=== PATIENT | female | born 1935 | race Caucasian/White ===

== ENCOUNTER 2016-09-06 14:46 | Inpatient (IN) | payer OTHER ==
[~2016-09-06] VITALS: Ht 165.1 cm; Wt 89.6 kg
[~2016-09-06 14:46] MED LIST: ADVAIR 250/501 DISK IH; ATROVENT H200 INHALA IH; BACTRIM,SEPT1 TABLET PO; FUROSEMIDE40 MG PO; JANUMET 50/51 TABLET PO; LASIX20 MG PO; LEVAQUIN500 MG PO; LORAZEPAM1 MG PO; METFORMIN HCL500 M4 PO; METFORMIN HCL500 MG PO; PROVENTIL,2.5 MG/3 M IH; SERTRALINE HCL100 MG PO; SIMVASTATIN20 MG PO; THEOCHRON PO; THEOPHYLLINE400 MG PO
[2016-09-06 15:25] LABS: CARBON DIOXIDE (BICARBONATE) 39.4 MEQ/L (20-31)
[2016-09-06 15:27] LABS: HEMATOCRIT 18.7 % (36.0-46.0); MCH 14.5 PG (29.0-34.0); MCHC 24.1 G/DL (30.0-36.0); MCV 60.3 FL (83-99); MEAN PLAT.VOLUME 9.2 uM^3 (9.5-12.4); NRBC (%) 0.5 /100 WBC (0-0); PLATELET COUNT 496 K/uL (156-360); RBC DIS.WIDTH-CV 22.7 % (11.8-14.6); RBC DIS.WIDTH-SD 47.3 % (39-53); WHITE BLOOD COUNT 12.1 K/uL (4.1-10.2)
[2016-09-06 15:34] LABS: CHLORIDE 100 mEq/L (99-109); SODIUM 142 mEq/L (136-147)
[2016-09-06 15:35] LABS: GLUCOSE 129 mg/dL (70-99)
[2016-09-06 15:37] LABS: ANION GAP 12 MEQ/L (2-14)
[2016-09-06 15:39] LABS: GFR ESTIMATE (CALCULATED) > 59 mL/min/
[2016-09-06 15:40] LABS: UREA NITROGEN (BUN) 11 mg/dL (9-23)
[2016-09-06 15:44] LABS: TROP-I INTERPRETATION NEGATIVE; TROPONIN-I < 0.01 ng/mL (0.0-0.30)
[2016-09-06] MEDS ORDERED: LASIX20 MG PO (17:04)
[2016-09-06] MEDS ORDERED: ZOCOR20 MG PO (17:05)
[2016-09-06] MEDS ORDERED: VESICARE5 MG PO (17:05)
[2016-09-06] MEDS ORDERED: PROAIR HFA8.5 GM IH (17:06)
[2016-09-06 18:18] VITALS: BP 144/55
[2016-09-06 21:38] VITALS: BP 161/65
[2016-09-06 21:40] VITALS: BP 161/65
[2016-09-07] VITALS (14 sets, daily range): BP systolic 129–149; BP diastolic 56–74
[2016-09-07 01:13] LABS: HEMATOCRIT 24.4 % (36.0-46.0); MCHC 27.5 G/DL (30.0-36.0); MEAN PLAT.VOLUME 9.1 uM^3 (9.5-12.4); NRBC (%) 0.6 /100 WBC (0-0); PLATELET COUNT 464 K/uL (156-360); RBC DIS.WIDTH-CV 27.1 % (11.8-14.6); RBC DIS.WIDTH-SD 61.1 % (39-53); WHITE BLOOD COUNT 12.8 K/uL (4.1-10.2)
[2016-09-07 01:17] LABS: MCV 65.2 FL (83-99); RED BLOOD COUNT 3.74 M/uL (3.80-5.20)
[2016-09-07 01:18] LABS: MCH 17.9 PG (29.0-34.0)
[2016-09-07 01:26] LABS: TROP-I INTERPRETATION NEGATIVE; TROPONIN-I < 0.01 ng/mL (0.0-0.30)
[2016-09-07 02:59] LABS: POINT-OF-CARE METER ID UU14174216; POINT-OF-CARE USER ID ENVMNS
[2016-09-07 07:47] LABS: HEMATOCRIT 28.2 % (36.0-46.0); MCV 66.2 FL (83-99)
[2016-09-07 08:15] LABS: TROP-I INTERPRETATION NEGATIVE; TROPONIN-I < 0.01 ng/mL (0.0-0.30)
[2016-09-07 09:55] LABS: BASOPHIL COUNT 0.1 K/uL (0-0.1); EOSINOPHIL (%) 2.7 % (0-5); EOSINOPHIL COUNT 0.3 K/uL (0-0.3); HEMATOCRIT 28.6 % (36.0-46.0); IMMATURE GRANULOCYTE (%) 1.7 % (0.0-0.7); IMMATURE GRANULOCYTE COUNT 0.2 K/uL; INSTRUMENT ABS NEUTROPHIL CT 10.1 K/uL; LYMPHOCYTE COUNT 1.1 K/uL (1.0-2.8); MCH 18.5 PG (29.0-34.0); MCV 66.2 FL (83-99); MONOCYTE (%) 7.5 % (3-12); NEUTROPHIL (%) 78.9 % (45-76); NEUTROPHIL COUNT 10.1 K/uL (1.8-6.4); PLATELET COUNT 454 K/uL (156-360); RBC DIS.WIDTH-CV 25.8 % (11.8-14.6); RBC DIS.WIDTH-SD 59.9 % (39-53); RED BLOOD COUNT 4.32 M/uL (3.80-5.20); WHITE BLOOD COUNT 12.7 K/uL (4.1-10.2)
[2016-09-07 10:36] LABS: IRON 71 MCG/DL (35-150)
[2016-09-07 10:56] LABS: FERRITIN 6 NG/ML (10-291)
[2016-09-07 11:02] LABS: INTER. NORMALIZED RATIO 1.1; PTT 26.9 (25-32)
[2016-09-07 12:19] LABS: POINT-OF-CARE METER ID UU13113781; POINT-OF-CARE USER ID ENVKC36
[2016-09-07 16:58] LABS: ANION GAP 11 MEQ/L (2-14); CHLORIDE 98 MEQ/L (99-109); SAMPLE HEMOLYSIS CHECK 0; SAMPLE ICTERIC CHECK 0; SAMPLE LIPEMIA CHECK 0; SODIUM 143 MEQ/L (136-147)
[2016-09-07 17:04] LABS: GFR ESTIMATE (CALCULATED) > 59 mL/min/; GLUCOSE 162 mg/dL (70-99); UREA NITROGEN (BUN) 9 mg/dL (9-23)
[2016-09-07 17:10] LABS: POINT-OF-CARE METER ID UU13113781
[2016-09-07 19:37] LABS: HEMATOCRIT 31.7 % (36.0-46.0); MCH 19.7 PG (29.0-34.0); MCV 67.7 FL (83-99); MEAN PLAT.VOLUME 9.3 uM^3 (9.5-12.4); NRBC (%) 0.7 /100 WBC (0-0); PLATELET COUNT 462 K/uL (156-360); RBC DIS.WIDTH-SD 63.8 % (39-53); RED BLOOD COUNT 4.68 M/uL (3.80-5.20); WHITE BLOOD COUNT 15.1 K/uL (4.1-10.2)
[2016-09-07 21:05] LABS: POINT-OF-CARE METER ID UU13113781
[2016-09-08 00:57] LABS: HEMATOCRIT 32.9 % (36.0-46.0); MCH 19.7 PG (29.0-34.0); MCHC 28.9 G/DL (30.0-36.0); MCV 68.3 FL (83-99); MEAN PLAT.VOLUME 9.2 uM^3 (9.5-12.4); NRBC (%) 0.7 /100 WBC (0-0); PLATELET COUNT 453 K/uL (156-360); RBC DIS.WIDTH-SD 64.3 % (39-53); RED BLOOD COUNT 4.82 M/uL (3.80-5.20); WHITE BLOOD COUNT 13.9 K/uL (4.1-10.2)
[2016-09-08 03:58] VITALS: BP 142/74
[2016-09-08 08:15] LABS: POINT-OF-CARE METER ID UU13113781; POINT-OF-CARE USER ID ENVKC36
[2016-09-08 09:23] VITALS: BP 134/64
[2016-09-08 09:26] LABS: BASOPHIL COUNT 0.1 K/uL (0-0.1); EOSINOPHIL (%) 0 % (0-5); HEMATOCRIT 30.6 % (36.0-46.0); IMMATURE GRANULOCYTE (%) 1.2 % (0.0-0.7); IMMATURE GRANULOCYTE COUNT 0.2 K/uL; INSTRUMENT ABS NEUTROPHIL CT 11.5 K/uL; LYMPHOCYTE COUNT 1.1 K/uL (1.0-2.8); MCH 19.9 PG (29.0-34.0); MCHC 28.8 G/DL (30.0-36.0); MCV 69.2 FL (83-99); MEAN PLAT.VOLUME 9.2 uM^3 (9.5-12.4); MONOCYTE (%) 6.1 % (3-12); MONOCYTE COUNT 0.8 K/uL (0-0.8); NEUTROPHIL (%) 84.3 % (45-76); NEUTROPHIL COUNT 11.5 K/uL (1.8-6.4); NRBC (%) 0.7 /100 WBC (0-0); PLATELET COUNT 459 K/uL (156-360); RBC DIS.WIDTH-CV 27.2 % (11.8-14.6); RBC DIS.WIDTH-SD 65.5 % (39-53); RED BLOOD COUNT 4.42 M/uL (3.80-5.20); WHITE BLOOD COUNT 13.6 K/uL (4.1-10.2)
[2016-09-08 09:39] LABS: ANION GAP 10 MEQ/L (2-14); CHLORIDE 103 MEQ/L (99-109); GFR ESTIMATE (CALCULATED) > 59 mL/min/; MAGNESIUM 1.6 mg/dl (1.3-2.7); POTASSIUM 3.3 MEQ/L (3.7-5.4); SAMPLE HEMOLYSIS CHECK 0; SAMPLE ICTERIC CHECK 0; SAMPLE LIPEMIA CHECK 0; SODIUM 148 MEQ/L (136-147); THEOPHYLLINE 13.8 MCG/ML (10-20); UREA NITROGEN (BUN) 10 mg/dL (9-23)
[2016-09-08 09:40] LABS: GLUCOSE 91 mg/dL (70-99)
[2016-09-08 11:23] LABS: POINT-OF-CARE USER ID ENVKC36
[2016-09-08 13:00] VITALS: BP 144/65
[2016-09-08 16:36] LABS: POINT-OF-CARE USER ID ENVKC36
[2016-09-08 17:20] VITALS: BP 136/61
[2016-09-08 19:15] VITALS: BP 145/63
[2016-09-08 20:22] LABS: HEMATOCRIT 32.1 % (36.0-46.0); MCV 70.2 FL (83-99)
[2016-09-08 22:58] VITALS: BP 124/60
[2016-09-09] VITALS (8 sets, daily range): BP systolic 130–164; BP diastolic 63–92
[2016-09-09 06:14] LABS: HEMATOCRIT 29.7 % (36.0-46.0); MCHC 28.3 G/DL (30.0-36.0); MCV 70.9 FL (83-99); MEAN PLAT.VOLUME 9.2 uM^3 (9.5-12.4); NRBC (%) 0.6 /100 WBC (0-0); PLATELET COUNT 453 K/uL (156-360); RBC DIS.WIDTH-CV 28.3 % (11.8-14.6); RBC DIS.WIDTH-SD 70.2 % (39-53); RED BLOOD COUNT 4.19 M/uL (3.80-5.20); WHITE BLOOD COUNT 12.6 K/uL (4.1-10.2)
[2016-09-09 06:46] LABS: ANION GAP 8 MEQ/L (2-14); CHLORIDE 103 MEQ/L (99-109); GFR ESTIMATE (CALCULATED) > 59 mL/min/; GLUCOSE 133 mg/dL (70-99); POTASSIUM 3.4 MEQ/L (3.7-5.4); SAMPLE HEMOLYSIS CHECK 0; SAMPLE ICTERIC CHECK 0; SAMPLE LIPEMIA CHECK 0; SODIUM 145 MEQ/L (136-147); UREA NITROGEN (BUN) 10 mg/dL (9-23)
[2016-09-09 08:37] LABS: INTERNAL CONTROL VALID? YES
[2016-09-09 09:21] LABS: BASE EXCESS 9.2 mEq/L (-3 to +3); BICARBONATE 35.7 mEq/L (22-26); CARBOXY HGB 1.2 % (0-5); COMMENTS - BLOOD GASES A+C+; METHEMOGLOBIN 1.3 % (0-1.5); PCO2 59 mm Hg (35-45); PO2 64 mm Hg (80-100); SITE RR; pH 7.39 (7.35-7.45)
[2016-09-09 09:22] LABS: DEVICE HFNC; FI02 80 %; O2 FLOW 30 L/MIN; TOTAL RESP RATE 16 resp/min
[2016-09-09 20:17] LABS: HEMATOCRIT 30.8 % (36.0-46.0); MCV 71.3 FL (83-99)
[2016-09-10] VITALS (7 sets, daily range): BP systolic 131–154; BP diastolic 59–93
[2016-09-10 07:57] LABS: HEMATOCRIT 34.1 % (36.0-46.0); MCH 20.5 PG (29.0-34.0); MCHC 28.2 G/DL (30.0-36.0); MCV 72.9 FL (83-99); MEAN PLAT.VOLUME 9.4 uM^3 (9.5-12.4); NRBC (%) 1.3 /100 WBC (0-0); PLATELET COUNT 420 K/uL (156-360); RBC DIS.WIDTH-CV 28.3 % (11.8-14.6); RBC DIS.WIDTH-SD 71.6 % (39-53); RED BLOOD COUNT 4.68 M/uL (3.80-5.20); WHITE BLOOD COUNT 10.5 K/uL (4.1-10.2)
[2016-09-10 08:07] LABS: ANION GAP 7 MEQ/L (2-14); CHLORIDE 103 MEQ/L (99-109); GFR ESTIMATE (CALCULATED) > 59 mL/min/; GLUCOSE 122 mg/dL (70-99); SAMPLE HEMOLYSIS CHECK 0; SAMPLE ICTERIC CHECK 0; SAMPLE LIPEMIA CHECK 0; SODIUM 140 MEQ/L (136-147); UREA NITROGEN (BUN) 10 mg/dL (9-23)
[2016-09-10 08:23] LABS: POINT-OF-CARE METER ID UU13113781
[2016-09-10 11:24] LABS: POINT-OF-CARE METER ID UU13113781
[2016-09-10 14:58] LABS: C DIFF TOXIN NEGATIVE (NEGATIVE)
[2016-09-10 15:14] LABS: PROBE CHECK PASS; SPECIMEN PROCESSING CONTROL PASS
[2016-09-10 15:44] LABS: POINT-OF-CARE METER ID UU13113781
[2016-09-10 20:17] LABS: HEMATOCRIT 33.5 % (36.0-46.0); MCV 73.8 FL (83-99)
[2016-09-10 20:53] LABS: POINT-OF-CARE METER ID UU13113781
[2016-09-11 00:01] VITALS: BP 159/69
[2016-09-11 03:45] VITALS: BP 145/98
[2016-09-11 07:15] VITALS: BP 151/67
[2016-09-11 07:47] LABS: POINT-OF-CARE METER ID UU13113781
[2016-09-11 09:42] LABS: HEMATOCRIT 36.6 % (36.0-46.0); MCV 73.3 FL (83-99)
[2016-09-11 10:24] LABS: IMMUNOGLOBULIN A 313 MG/DL (40-350); IMMUNOGLOBULIN G 936 MG/DL (650-1600); IMMUNOGLOBULIN M 166 MG/DL (50-300)
[2016-09-11 11:07] LABS: POINT-OF-CARE METER ID UU13113781
[2016-09-11 16:00] VITALS: BP 160/72
[2016-09-11 16:46] LABS: POINT-OF-CARE METER ID UU13113781
[2016-09-11 19:18] VITALS: BP 140/63
[2016-09-11 20:39] LABS: HEMATOCRIT 37.6 % (36.0-46.0); MCV 74.2 FL (83-99)
[2016-09-11 21:08] LABS: POINT-OF-CARE METER ID UU13113781
[2016-09-12] VITALS (7 sets, daily range): BP systolic 119–146; BP diastolic 56–69
[2016-09-12 07:48] LABS: HEMATOCRIT 35.8 % (36.0-46.0); MCH 20.8 PG (29.0-34.0); MCHC 27.7 G/DL (30.0-36.0); MCV 75.2 FL (83-99); MEAN PLAT.VOLUME 9.2 uM^3 (9.5-12.4); NRBC (%) 0.5 /100 WBC (0-0); PLATELET COUNT 388 K/uL (156-360); RBC DIS.WIDTH-CV 30.6 % (11.8-14.6); RBC DIS.WIDTH-SD 79.9 % (39-53); RED BLOOD COUNT 4.76 M/uL (3.80-5.20); WHITE BLOOD COUNT 10.2 K/uL (4.1-10.2)
[2016-09-12 07:50] LABS: ANION GAP 10 MEQ/L (2-14); CHLORIDE 100 MEQ/L (99-109); GFR ESTIMATE (CALCULATED) 57 mL/min/; SAMPLE HEMOLYSIS CHECK 0; SAMPLE ICTERIC CHECK 0; SAMPLE LIPEMIA CHECK 0; SODIUM 142 MEQ/L (136-147)
[2016-09-12 07:51] LABS: GLUCOSE 192 mg/dL (70-99); UREA NITROGEN (BUN) 21 mg/dL (9-23)
[2016-09-12 16:45] LABS: POINT-OF-CARE METER ID UU13113781
[2016-09-12 20:11] LABS: HEMATOCRIT 37.6 % (36.0-46.0); MCV 74.9 FL (83-99)
[2016-09-12 21:16] LABS: POINT-OF-CARE METER ID UU13113781
[2016-09-13 03:48] VITALS: BP 129/58
[2016-09-13 07:30] VITALS: BP 166/74
[2016-09-13 07:38] LABS: HEMATOCRIT 37.9 % (36.0-46.0); MCH 21.2 PG (29.0-34.0); MCV 75.6 FL (83-99); MEAN PLAT.VOLUME 9.4 uM^3 (9.5-12.4); NRBC (%) 0.2 /100 WBC (0-0); PLATELET COUNT 374 K/uL (156-360); RBC DIS.WIDTH-CV 31.2 % (11.8-14.6); RBC DIS.WIDTH-SD 80.8 % (39-53); RED BLOOD COUNT 5.01 M/uL (3.80-5.20); WHITE BLOOD COUNT 9.9 K/uL (4.1-10.2)
[2016-09-13 11:40] VITALS: BP 146/63
[2016-09-13 12:42] LABS: POC NON-PRINT COM 1 ND
[2016-09-13 17:15] VITALS: BP 146/67
[2016-09-13 19:19] VITALS: BP 146/65
[2016-09-13 20:09] LABS: HEMATOCRIT 37.9 % (36.0-46.0); MCV 75.8 FL (83-99)
[2016-09-13 23:56] VITALS: BP 120/57
[2016-09-14 04:12] VITALS: BP 139/61
[2016-09-14 05:59] LABS: HEMATOCRIT 36.3 % (36.0-46.0); MCV 77.4 FL (83-99)
[2016-09-14 06:25] LABS: IMMUNOGLOBULIN A 288 MG/DL (40-350); IMMUNOGLOBULIN G 804 MG/DL (650-1600); IMMUNOGLOBULIN M 160 MG/DL (50-300)
[2016-09-14 07:41] VITALS: BP 128/58
[2016-09-14 11:43] VITALS: BP 120/58
[2016-09-14 16:35] VITALS: BP 129/57
[2016-09-14 19:57] VITALS: BP 141/75
[2016-09-14 20:01] LABS: HEMATOCRIT 38.6 % (36.0-46.0); MCV 76.6 FL (83-99)
[2016-09-15 00:23] VITALS: BP 169/71
[2016-09-15 04:22] VITALS: BP 131/87
[2016-09-15 08:03] LABS: POINT-OF-CARE USER ID NUTSLF44
[2016-09-15 08:29] LABS: MCV 76.8 FL (83-99)
[2016-09-15 08:53] LABS: CHLORIDE 100 mEq/L (99-109); POTASSIUM 5.2 mEq/L (3.7-5.4); SODIUM 141 mEq/L (136-147)
[2016-09-15 08:54] LABS: GLUCOSE 151 mg/dL (70-99)
[2016-09-15 08:56] LABS: ANION GAP 8 MEQ/L (2-14)
[2016-09-15 08:58] LABS: GFR ESTIMATE (CALCULATED) > 59 mL/min/
[2016-09-15 08:59] LABS: UREA NITROGEN (BUN) 21 mg/dL (9-23)
[2016-09-15 09:24] VITALS: BP 122/56
[2016-09-15 11:36] VITALS: BP 132/60
[2016-09-15 12:18] LABS: POINT-OF-CARE USER ID NUTSLF44
[2016-09-15 13:09] LABS: BASE EXCESS 8.8 mEq/L (-3 to +3); BICARBONATE 36.2 mEq/L (22-26); METHEMOGLOBIN 1.6 % (0-1.5); PO2 64 mm Hg (80-100); pH 7.36 (7.35-7.45)
[2016-09-15 13:10] LABS: COMMENTS - BLOOD GASES A+C+; DEVICE HFNC; O2 FLOW 12 L/MIN; PCO2 64 mm Hg (35-45); SITE LR
[2016-09-15 15:59] VITALS: BP 127/60
[2016-09-15 17:47] LABS: POINT-OF-CARE METER ID UU13113781; POINT-OF-CARE USER ID NUTSLF44
[2016-09-15 19:52] LABS: HEMATOCRIT 37.7 % (36.0-46.0); MCV 77.3 FL (83-99)
[2016-09-15 20:43] LABS: POINT-OF-CARE METER ID UU13113781
[2016-09-15 20:58] VITALS: BP 139/62
[2016-09-16 00:17] VITALS: BP 136/63
[2016-09-16 02:45] VITALS: BP 171/77
[2016-09-16 07:03] VITALS: BP 136/60
[2016-09-16 09:16] LABS: HEMATOCRIT 41.6 % (36.0-46.0); MCH 21.8 PG (29.0-34.0); MCHC 28.1 G/DL (30.0-36.0); MCV 77.5 FL (83-99); PLATELET COUNT 288 K/uL (156-360); RED BLOOD COUNT 5.37 M/uL (3.80-5.20); WHITE BLOOD COUNT 8.6 K/uL (4.1-10.2)
[2016-09-16 09:57] LABS: ANION GAP 8 MEQ/L (2-14); CHLORIDE 98 MEQ/L (99-109); GFR ESTIMATE (CALCULATED) > 59 mL/min/; GLUCOSE 139 mg/dL (70-99); POTASSIUM 4.7 MEQ/L (3.7-5.4); SAMPLE HEMOLYSIS CHECK 0; SAMPLE ICTERIC CHECK 0; SAMPLE LIPEMIA CHECK 0; SODIUM 138 MEQ/L (136-147); UREA NITROGEN (BUN) 21 mg/dL (9-23)
[2016-09-16 12:47] VITALS: BP 138/61
[2016-09-16 16:20] VITALS: BP 132/60
[2016-09-16 18:55] VITALS: BP 149/66
[2016-09-16 19:52] LABS: HEMATOCRIT 38.2 % (36.0-46.0)
[2016-09-16 20:48] LABS: POINT-OF-CARE METER ID UU13113698
[2016-09-17 00:30] VITALS: BP 156/68
[2016-09-17 05:50] VITALS: BP 193/82
[2016-09-17 06:39] LABS: HEMATOCRIT 38.7 % (36.0-46.0); MCV 77.6 FL (83-99)
[2016-09-17 07:51] LABS: POINT-OF-CARE METER ID UU14174216
[2016-09-17 08:04] LABS: ANION GAP 8 MEQ/L (2-14); CHLORIDE 99 MEQ/L (99-109); GFR ESTIMATE (CALCULATED) > 59 mL/min/; GLUCOSE 168 mg/dL (70-99); POTASSIUM 5.1 MEQ/L (3.7-5.4); SAMPLE HEMOLYSIS CHECK 0; SAMPLE ICTERIC CHECK 0; SAMPLE LIPEMIA CHECK 0; SODIUM 137 MEQ/L (136-147); UREA NITROGEN (BUN) 22 mg/dL (9-23)
[2016-09-17 09:00] VITALS: BP 132/63
[2016-09-17 11:14] LABS: POINT-OF-CARE METER ID UU14174216
[2016-09-17 12:20] VITALS: BP 128/58
[2016-09-17 15:21] VITALS: BP 129/58
[2016-09-17 15:52] LABS: POINT-OF-CARE METER ID UU14174216
[2016-09-17 21:03] VITALS: BP 129/63
[2016-09-17 21:12] LABS: POINT-OF-CARE METER ID UU13113781
[2016-09-18 00:30] VITALS: BP 146/66
[2016-09-18 07:54] LABS: MCH 22.2 PG (29.0-34.0); MCHC 28.6 G/DL (30.0-36.0); MCV 77.4 FL (83-99); PLATELET COUNT 237 K/uL (156-360); RED BLOOD COUNT 4.78 M/uL (3.80-5.20); WHITE BLOOD COUNT 8.7 K/uL (4.1-10.2)
[2016-09-18 08:10] LABS: ANION GAP 4 MEQ/L (2-14); CHLORIDE 101 MEQ/L (99-109); GFR ESTIMATE (CALCULATED) > 59 mL/min/; POTASSIUM 4.6 MEQ/L (3.7-5.4); SAMPLE HEMOLYSIS CHECK 0; SAMPLE ICTERIC CHECK 0; SAMPLE LIPEMIA CHECK 0; SODIUM 138 MEQ/L (136-147); UREA NITROGEN (BUN) 22 mg/dL (9-23)
[2016-09-18 08:18] LABS: GLUCOSE 93 mg/dL (70-99)
[2016-09-18 08:22] LABS: POINT-OF-CARE METER ID UU13113698
[2016-09-18 08:55] VITALS: BP 141/65
[2016-09-18 12:31] LABS: POINT-OF-CARE METER ID UU13113698
[2016-09-18 12:37] VITALS: BP 136/59
[2016-09-18 15:42] LABS: POINT-OF-CARE METER ID UU13113781
[2016-09-18 15:52] VITALS: BP 131/58
[2016-09-18 19:00] VITALS: BP 137/63
[2016-09-18 19:59] LABS: HEMATOCRIT 36.4 % (36.0-46.0); MCV 78.4 FL (83-99)
[2016-09-18 21:01] LABS: POINT-OF-CARE METER ID UU13113781
[2016-09-18 23:30] VITALS: BP 144/65
[2016-09-19 03:15] VITALS: BP 134/63
[2016-09-19 07:46] LABS: HEMATOCRIT 36.5 % (36.0-46.0); MCV 78.5 FL (83-99)
[2016-09-19 07:58] VITALS: BP 137/64
[2016-09-19] MEDS ORDERED: AZITHROMYCIN500 M1 PO (08:08)
[2016-09-19] MEDS ORDERED: SPIRIVA RESPIMAT4 GM IH (08:08)
[2016-09-19] MEDS ORDERED: DUONEB 2.5-0.5 M3 ML PEP (08:09)
[2016-09-19] MEDS ORDERED: FERROUS SULFAT325 MG PO (08:09)
[2016-09-19] MEDS ORDERED: CHOLESTYRAMINE P4 GM PO (08:10)
[2016-09-19] MEDS ORDERED: LASIX20 MG PO (08:12)
[2016-09-19] MEDS ORDERED: LOPERAMIDE2 MG PO (08:14)
[2016-09-19] MEDS ORDERED: PANTOPRAZOLE SO40 MG PO (08:15)
[2016-09-19] MEDS ORDERED: FLORASTOR250 MG PO (08:15)
[2016-09-19] MEDS ORDERED: MEDROL DOSEPAK4 MG PO (08:16)
[2016-09-19] MEDS ORDERED: ZOFRAN4 MG PO (08:17)
[2016-09-19 11:14] LABS: POINT-OF-CARE METER ID UU14174216
[2016-09-19 11:31] VITALS: BP 111/46
[2016-09-19 11:46] LABS: POINT-OF-CARE METER ID UU14174216
[2016-09-19 16:21] VITALS: BP 132/66
[2016-09-19 19:22] VITALS: BP 158/70
[2016-09-20 00:53] VITALS: BP 176/74
[2016-09-20 05:50] LABS: MCH 22.9 PG (29.0-34.0); MCHC 29.2 G/DL (30.0-36.0); MCV 78.4 FL (83-99); PLATELET COUNT 202 K/uL (156-360); RED BLOOD COUNT 4.85 M/uL (3.80-5.20); WHITE BLOOD COUNT 11.3 K/uL (4.1-10.2)
[2016-09-20 06:11] VITALS: BP 136/61
[2016-09-20 06:17] LABS: ANION GAP 7 MEQ/L (2-14); CHLORIDE 102 MEQ/L (99-109); GFR ESTIMATE (CALCULATED) > 59 mL/min/; GLUCOSE 106 mg/dL (70-99); POTASSIUM 4.8 MEQ/L (3.7-5.4); SAMPLE HEMOLYSIS CHECK 0; SAMPLE ICTERIC CHECK 0; SAMPLE LIPEMIA CHECK 0; SODIUM 140 MEQ/L (136-147); UREA NITROGEN (BUN) 22 mg/dL (9-23)
[2016-09-20 06:32] LABS: POINT-OF-CARE METER ID UU14174216
[2016-09-20 07:41] VITALS: BP 168/75
[2016-09-20 11:19] LABS: POINT-OF-CARE METER ID UU13113698
== END 2016-09-20 14:26 | disposition home health service (06) | DRG 377 ==
LOC: EME 14:46 → EDOF 23:23 → 4EAST 23:23
PROVIDERS: Emergency Medicine; Hospitalist; Internal Medicine; Internal Medicine Pulmonary Disease; Specialist
PROC: 30233N1 Transfusion of Nonautologous Red Blood Cells into Peripheral Vein, Percutaneous Approach (ICD-10-PCS; principal; 2016-09-06)
DX: K92.2 Gastrointestinal hemorrhage, unspecified (principal); E87.2 Acidosis; I50.33 Acute on chronic diastolic (congestive) heart failure; E87.0 Hyperosmolality and hypernatremia; D50.9 Iron deficiency anemia, unspecified; J96.21 Acute and chronic respiratory failure with hypoxia; J44.0 Chronic obstructive pulmonary disease with (acute) lower respiratory infection; J18.9 Pneumonia, unspecified organism; J44.1 Chronic obstructive pulmonary disease with (acute) exacerbation; E87.6 Hypokalemia; I45.10 Unspecified right bundle-branch block; R59.1 Generalized enlarged lymph nodes; F41.9 Anxiety disorder, unspecified; E11.9 Type 2 diabetes mellitus without complications; R91.8 Other nonspecific abnormal finding of lung field; K52.9 Noninfective gastroenteritis and colitis, unspecified; E66.9 Obesity, unspecified; Z99.81 Dependence on supplemental oxygen; Z68.34 Body mass index [BMI] 34.0-34.9, adult; Z74.01 Bed confinement status; Z87.891 Personal history of nicotine dependence
CPT/HCPCS: 36600; 70450; 71010; 71020; 71250; 71275; 74176; 80048; 80198; 81003; 82272; 82728; 82784 90; 82803; 82948; 83516 90; 83540; 83605; 83735; 83880; 84443; 84466; 84484; 85014; 85018; 85025; 85027; 85610; 85730; 86900; 86901; 86920; 87040; 87070; 87177; 87205; 87449; 87493; 87506; 93005; 93306; 94010; 94640; 94640 76; 94667; 94668; 94760; 94799; 97530 GO; 97530 GP; 99202; 99281; 99285; C9113; J0456; J0692; J0696; J1644; J1815; J1940; J2920; J2930; J3480; J7050; J7512; J7644; P9016; Q0138

== ENCOUNTER 2016-12-12 11:11 | Emergency (ER) | payer OTHER ==
[~2016-12-12] VITALS: Ht 165.1 cm; Wt 95.0 kg
[~2016-12-12 11:11] MED LIST changes: +AZITHROMYCIN500 M1 PO; +CHOLESTYRAMINE P4 GM PO; +DUONEB 2.5-0.5 M3 ML PEP; +FERROUS SULFAT325 MG PO; +FLORASTOR250 MG PO; +LOPERAMIDE2 MG PO; +MEDROL DOSEPAK4 MG PO; +PANTOPRAZOLE SO40 MG PO; +PROAIR HFA8.5 GM IH; +SPIRIVA RESPIMAT4 GM IH; +VESICARE5 MG PO; +ZOCOR20 MG PO; +ZOFRAN4 MG PO
[2016-12-12 12:55] LABS: HEMATOCRIT 30.5 % (36.0-46.0); MCH 24.3 PG (29.0-34.0); MCHC 29.8 G/DL (30.0-36.0); MCV 81.3 FL (83-99); PLATELET COUNT 299 K/uL (156-360); RED BLOOD COUNT 3.75 M/uL (3.80-5.20); WHITE BLOOD COUNT 10.6 K/uL (4.1-10.2)
[2016-12-12 13:06] LABS: CHLORIDE 104 mEq/L (99-109); POTASSIUM 4.3 mEq/L (3.7-5.4); SODIUM 143 mEq/L (136-147)
[2016-12-12 13:07] LABS: GLUCOSE 91 mg/dL (70-99)
[2016-12-12 13:09] LABS: ANION GAP 9 MEQ/L (2-14)
[2016-12-12 13:11] LABS: GFR ESTIMATE (CALCULATED) 57 mL/min/
[2016-12-12 13:12] LABS: UREA NITROGEN (BUN) 18 mg/dL (9-23)
[2016-12-12 16:02] VITALS: BP 141/63
== END 2016-12-12 16:03 | disposition home or self-care (01) ==
LOC: EME 11:11
PROVIDERS: Nurse Practitioner Family
DX: R51 Headache (principal); J45.909 Unspecified asthma, uncomplicated; E11.9 Type 2 diabetes mellitus without complications; Z79.84 Long term (current) use of oral hypoglycemic drugs; Z87.891 Personal history of nicotine dependence
CPT/HCPCS: 70450; 80048; 85027; 99281; 99285; J0780; J1200; J1885; J7040

== ENCOUNTER 2017-10-22 19:45 | Inpatient (IN) | payer OTHER ==
[~2017-10-22] VITALS: Ht 162.6 cm; Wt 83.6 kg
[~2017-10-22 19:45] MED LIST changes: +BENZONATATE200 MG PO; +FEOSOL325 MG PO
[2017-10-22 21:24] LABS: HEMATOCRIT 35.5 % (36.0-46.0); HEMOGLOBIN 10.9 G/DL (11.9-15.5); MCH 23.4 PG (29.0-34.0); MCHC 30.7 G/DL (30.0-36.0); MCV 76.2 FL (83-99); PLATELET COUNT 291 K/uL (156-360); RBC DIS.WIDTH-CV 20.3 % (11.8-14.6); RBC DIS.WIDTH-SD 54.8 % (39-53); RED BLOOD COUNT 4.66 M/uL (3.80-5.20); WHITE BLOOD COUNT 23.6 K/uL (4.1-10.2)
[2017-10-22 21:26] LABS: BASOPHIL (%) 0.5 % (0-1); BASOPHIL COUNT 0.1 K/uL (0-0.1); EOSINOPHIL (%) 0 % (0-5); IMMATURE GRANULOCYTE (%) 0.9 % (0.0-0.7); LYMPHOCYTE (%) 4.3 % (15-42); MONOCYTE (%) 4.2 % (3-12); NEUTROPHIL (%) 90.1 % (45-76); NEUTROPHIL COUNT 21.3 K/uL (1.8-6.4)
[2017-10-22 21:33] LABS: ALBUMIN 3.2 g/dL (3.2-4.8)
[2017-10-22 21:34] LABS: CHLORIDE 104 mEq/L (99-109); POTASSIUM 3.4 mEq/L (3.7-5.4); SODIUM 141 mEq/L (136-147)
[2017-10-22 21:36] LABS: GLUCOSE 134 mg/dL (70-99); TOTAL PROTEIN 6.4 g/dL (6.4-8.3)
[2017-10-22 21:38] LABS: TOTAL BILIRUBIN 0.2 mg/dL (0.0-1.0)
[2017-10-22 21:39] LABS: ALKALINE PHOSPHATASE 79 IU/L (3-129)
[2017-10-22 21:40] LABS: GFR ESTIMATE (CALCULATED) 56 mL/min/
[2017-10-22 21:41] LABS: AST (GOT) 12 IU/L (2-34); UREA NITROGEN (BUN) 13 mg/dL (9-23)
[2017-10-22 21:42] LABS: ALT (GPT) 10 IU/L (3-49)
[2017-10-22 21:43] LABS: LIPASE 21 U/L (1.0-51.0)
[2017-10-22 21:45] LABS: TROP-I INTERPRETATION NEGATIVE; TROPONIN-I 0.03 ng/mL (0.0-0.30)
[2017-10-22 22:29] LABS: APPEARANCE SL.HAZY ((CLEAR)); BILIRUBIN NEGATIVE; BLOOD NEGATIVE; COLOR YELLOW ((YELLOW)); GLUCOSE (STRIP) NEGATIVE; KETONES NEGATIVE; LEUKOCYTES NEGATIVE; NITRITE POSITIVE; PROTEIN (STRIP) NEGATIVE; SPECIFIC GRAVITY 1.016 (1.000-1.030); UROBILINOGEN 0.2 MG/DL (0.2-1.0)
[2017-10-22 22:49] LABS: BACTERIA 3+ /HPF; CALCIUM OXALATE CRYSTALS 3+ /HPF; EPITHELIAL CELLS RARE /HPF; MUCUS TRACE /LPF; RED BLOOD CELLS 0-5 /HPF (0-5); UCUL ADDED? YES; WHITE BLOOD CELLS 0-5 /HPF (0-5)
[2017-10-23] MEDS ORDERED: LORAZEPAM0.5 MG PO (00:40)
[2017-10-23 01:08] VITALS: BP 117/58
[2017-10-23] MEDS ORDERED: FUROSEMIDE20 MG PO (01:16)
[2017-10-23] MEDS ORDERED: SIMVASTATIN20 MG PO (01:17)
[2017-10-23] MEDS ORDERED: LASIX20 MG PO (01:28)
[2017-10-23] MEDS ORDERED: TRAMADOL HCL50 MG PO (02:23)
[2017-10-23 03:53] VITALS: BP 110/64
[2017-10-23 05:31] LABS: BASOPHIL (%) 0.7 % (0-1); BASOPHIL COUNT 0.1 K/uL (0-0.1); EOSINOPHIL (%) 0.7 % (0-5); EOSINOPHIL COUNT 0.1 K/uL (0-0.3); HEMATOCRIT 32.2 % (36.0-46.0); HEMOGLOBIN 9.8 G/DL (11.9-15.5); IMMATURE GRANULOCYTE (%) 0.7 % (0.0-0.7); LYMPHOCYTE (%) 7.3 % (15-42); LYMPHOCYTE COUNT 1.1 K/uL (1.0-2.8); MCH 23.5 PG (29.0-34.0); MCHC 30.4 G/DL (30.0-36.0); MCV 77.2 FL (83-99); MONOCYTE (%) 6.9 % (3-12); NEUTROPHIL (%) 83.7 % (45-76); NEUTROPHIL COUNT 12.3 K/uL (1.8-6.4); PLATELET COUNT 255 K/uL (156-360); RBC DIS.WIDTH-CV 20.4 % (11.8-14.6); RBC DIS.WIDTH-SD 57.1 % (39-53); RED BLOOD COUNT 4.17 M/uL (3.80-5.20); WHITE BLOOD COUNT 14.7 K/uL (4.1-10.2)
[2017-10-23 05:59] LABS: CHLORIDE 107 MEQ/L (99-109); CREATININE 0.9 MG/DL (0.6-1.3); GFR ESTIMATE (CALCULATED) > 59 mL/min/; GLUCOSE 103 mg/dL (70-99); POTASSIUM 3.3 MEQ/L (3.7-5.4); SODIUM 143 MEQ/L (136-147); UREA NITROGEN (BUN) 11 mg/dL (9-23)
[2017-10-23 07:33] VITALS: BP 120/56
[2017-10-23 11:44] VITALS: BP 117/56
[2017-10-23 15:54] VITALS: BP 112/60
[2017-10-23 20:21] VITALS: BP 118/58
[2017-10-24] VITALS (7 sets, daily range): BP systolic 121–151; BP diastolic 53–67
[2017-10-24 06:41] LABS: BASOPHIL (%) 0.7 % (0-1); BASOPHIL COUNT 0.1 K/uL (0-0.1); EOSINOPHIL (%) 3.2 % (0-5); EOSINOPHIL COUNT 0.3 K/uL (0-0.3); HEMATOCRIT 32.8 % (36.0-46.0); HEMOGLOBIN 9.9 G/DL (11.9-15.5); IMMATURE GRANULOCYTE (%) 0.5 % (0.0-0.7); LYMPHOCYTE (%) 9.4 % (15-42); LYMPHOCYTE COUNT 0.9 K/uL (1.0-2.8); MCH 23.6 PG (29.0-34.0); MCHC 30.2 G/DL (30.0-36.0); MCV 78.1 FL (83-99); MONOCYTE COUNT 0.8 K/uL (0-0.8); NEUTROPHIL (%) 77.2 % (45-76); PLATELET COUNT 263 K/uL (156-360); RBC DIS.WIDTH-SD 58.6 % (39-53); WHITE BLOOD COUNT 9.1 K/uL (4.1-10.2)
[2017-10-24 07:10] LABS: CHLORIDE 106 MEQ/L (99-109); CREATININE 0.9 MG/DL (0.6-1.3); GFR ESTIMATE (CALCULATED) > 59 mL/min/; GLUCOSE 120 mg/dL (70-99); SODIUM 142 MEQ/L (136-147); UREA NITROGEN (BUN) 10 mg/dL (9-23)
[2017-10-25 04:20] VITALS: BP 132/60
[2017-10-25] MEDS ORDERED: KEFLEX500 MG PO (11:14)
[2017-10-25 12:10] VITALS: BP 151/65
== END 2017-10-25 16:05 | disposition home health service (06) | DRG 689 ==
LOC: EME 19:45 → EDOF 23:29 → 5SOUTH 23:29 → ENRESERV 23:30 → 5SOUTH 10-23 00:50
PROVIDERS: Emergency Medicine; Physician Assistant; Student in an Organized Health Care Education/Training Program
DX: N39.0 Urinary tract infection, site not specified (principal); B96.20 Unspecified Escherichia coli [E. coli] as the cause of diseases classified elsewhere; G93.41 Metabolic encephalopathy; R91.1 Solitary pulmonary nodule; E87.6 Hypokalemia; I11.0 Hypertensive heart disease with heart failure; I50.33 Acute on chronic diastolic (congestive) heart failure; J44.9 Chronic obstructive pulmonary disease, unspecified; Z99.81 Dependence on supplemental oxygen; K52.9 Noninfective gastroenteritis and colitis, unspecified; K63.9 Disease of intestine, unspecified; D50.9 Iron deficiency anemia, unspecified; E11.9 Type 2 diabetes mellitus without complications; E66.01 Morbid (severe) obesity due to excess calories; Z68.31 Body mass index [BMI] 31.0-31.9, adult; E78.5 Hyperlipidemia, unspecified; I25.10 Atherosclerotic heart disease of native coronary artery without angina pectoris; K59.00 Constipation, unspecified; Z66 Do not resuscitate; F32.9 Major depressive disorder, single episode, unspecified; F41.9 Anxiety disorder, unspecified; R63.4 Abnormal weight loss; Z87.891 Personal history of nicotine dependence
CPT/HCPCS: 70450; 71045; 74176; 80048; 80053; 81003; 82948; 83605; 83690; 84484; 85025; 87040; 87077; 87086; 87186; 94640; 94760; 94799; 99281; 99285; J0696; J1644; J1815; J2405; J2543; J7030; J7050